=== PATIENT | female | born 1955 | race Caucasian/White ===

== ENCOUNTER 2023-07-11 07:32 | Day surgery (SDC) | payer MEDICARE, OTHER ==
[~2023-07-11] VITALS: Ht 157.5 cm; Wt 68.2 kg
[~2023-07-11 07:32] MED LIST: ALDACTONE25 MG PO; AMLODIPINE BESYL5 MG PO; ASPIRIN EC81 MG PO; CO Q-10100 MG PO; FLUVASTATIN SOD40 MG PO; GLUCOPHAGE500 MG PO; IBUPROFEN800 MG PO; LISINOPRIL2.5 MG PO; NORCO 5-325 TA1 EACH PO; NORVASC5 MG PO; SPIRONOLACTONE50 MG PO; VITAMIN C500 M1 PO; VITAMIN D-32000 UNIT PO; ZESTRIL2.5 MG PO
[2023-07-11 07:53] VITALS: BP 138/64
[2023-07-11] MEDS ORDERED: VITAMIN B12500 MCG PO (08:01)
[2023-07-11] MEDS ORDERED: VITAMIN D310 MC4 (08:01)
--- NOTE | 2023-07-11 09:24 | NUR ---
07/11/23 0924 Cinda Freedman 0907-ARRIVED IN PACU. AROUSES TO VERB STIM THEN IMMED BACK TO SLEEP. DENIES ANY C/O. 0917- MD AT BEDSIDE. PT TOO SLEEPY TO REVIEW PROCEDURE RESULTS WITH.
[2023-07-11 10:14] VITALS: BP 113/60
--- NOTE | 2023-07-11 11:00 | NUR ---
1005 PT CAME BACK TO DAY SURGERY VIA STRECHER. PT HAD MET ALL CRITERIA TO GO HOME, BUT PT WAS DROWSEY. 1015 PT VITALS TAKEN. PT REPORTS NO PAIN OR NAUSEA. 1040 DISCHARGE PAPERWORK GONE OVER, PRESRIPTION GIVEN TO SPOUSE. NO FURTHER QUESTIONS AT THIS TIME. 1050 PT LEFT DAY SURGERY VIA WHEELCHAIR TO FRONT OF THE HOSPITAL TO HUSBANDS CAR.
--- NOTE | 2023-07-12 10:00 | OR ---
[facility] [address] [place], [place] [address] Signed DATE OF OPERATION: 07/11/2023 SURGEON: Janki Rebolledo MD PREOPERATIVE DIAGNOSIS: Persistent diarrhea (known diverticulosis). POSTOPERATIVE DIAGNOSES: 1. Diverticulosis of sigmoid and left colon. 2. Internal hemorrhoids. 3. Normal-appearing ileum and colon. PROCEDURE: Total colonoscopy to cecum with intubation of ileum and biopsy of ileum, colon and rectum. ANESTHESIA: Intravenous sedation; fentanyl 100 mcg and Versed 8 mg. INDICATION: This 68-year-old white woman is a patient of Dr. Alexia Estrella. She is referred for consideration of colonoscopy on the basis of persistent diarrhea. Notably, she has no associated blood per rectum. She has undergone colonoscopy in the past, which has demonstrated diverticulosis. She does have a history of uterine and cervical cancer treated in 2016, which included chemotherapy as well as surgery. She had no radiation therapy she says. She has no family history of colon cancer. She is admitted at this time to undergo colonoscopy to better characterize the source of her diarrhea. She understands the risk of bleeding, infection, and perforation. FINDINGS: The prep was good. Complete colonoscopy was undertaken to the cecum. With great effort, the ileum was intubated and generally appeared normal. Biopsies were obtained there as well. Biopsies were taken of the cecum, the transverse colon, left colon and rectosigmoid. There is no overt colitis. Diverticulosis of the sigmoid was profound and was challenging to pass beyond with the scope, but it was accomplished. She had no evidence of malignancy or overt colitis though biopsies are pending. Internal hemorrhoids were identified as well. DESCRIPTION OF PROCEDURE: The patient was brought to the endoscopy suite and placed in the lateral decubitus Electronically Signed By: JANKI REBOLLEDO MD 07/12/23 1000 PATIENT NAME: BRUNO BLACK OPERATIVE REPORT DATE OF : 51 REPORT #: [id number] PHYSICIAN: JANKI REBOLLEDO MD PCP: JENIFER GAMBOA NP REPORT IS CONFIDENTIAL AND NOT TO BE RELEASED WITHOUT AUTHORIZATION [facility] [address], [place] [address] Signed position, given intravenous sedation to the point of slurred speech and nystagmus. Full cardiopulmonary monitoring was maintained. Digital rectal examination was normal. An Olympus video colonoscope was passed in the rectum and manipulated throughout the colon noting diverticula of the sigmoid and left colon. Passage to the area was rather challenging, but was accomplished with all due care. Once past the sigmoid, the scope was easily passed to the cecum. The ileocecal valve and appendiceal orifice were normal. There was no overt colitis. With various manipulations, the scope was advanced into the ileum and passed for several cm. Biopsies were obtained there. The mucosa did not appear inflamed, strictured or ulcerated. The scope was withdrawn and biopsies taken of the cecum. Careful withdrawal of the scope allowed for biopsy of the transverse colon and ultimately the rectosigmoid as well. Retroflexed view confirmed internal hemorrhoids. The scope was removed and the patient was taken to the recovery room in good condition. CONCLUDING DIAGNOSIS: Diverticulosis, which was significant. No evidence of stricture proper however. No evidence of overt colitis or ileitis. PLAN: Would recommend a fiber supplement such as Metamucil one scoop p.o. daily. We will review pathology reports particularly to assess for occult colitis. She will return to the ongoing care of Dr. Alexia Estrella. If she has persistent symptoms, I am happy to assist with symptom control recommendations. Would recommend repeat colonoscopy in 10 years, sooner if necessary. MD ASHA Cano/CHRISL /[id number] cc: Dr.Emily Estrella Electronically Signed By: JANKI REBOLLEDO MD 07/12/23 1000 PATIENT NAME: BRUNO BLACK MARVIN OPERATIVE REPORT DATE OF : 51 REPORT #: [id number] PHYSICIAN: JANKI REBOLLEDO MD PCP: JENIFER GAMBOA NP REPORT IS CONFIDENTIAL AND NOT TO BE RELEASED WITHOUT AUTHORIZATION [facility] [address] [place] [id number] Signed Copies: ~ Electronically Signed By: JANKI REBOLLEDO MD 07/12/23 1000 PATIENT NAME: BRUNO BLACK OPERATIVE REPORT DATE OF : 51 REPORT #: [id number] PHYSICIAN: JANKI REBOLLEDO MD PCP: JENIFER GAMBOA NP REPORT IS CONFIDENTIAL AND NOT TO BE RELEASED WITHOUT AUTHORIZATION
--- NOTE | 2023-07-13 10:31 | PATH ---
[facility] [address] [place], [place] [address] Signed SPECIMEN(S): A CECUM BIOPSY SPECIMEN(S): B ILEUM BIOPSY SPECIMEN(S): C TRANSVERSE BIOPSY SPECIMEN(S): D RECTOSIGMOID BIOPSY SPECIMEN SOURCE: A. CECUM BIOPSY B. ILEUM BIOPSY C. TRANSVERSE BIOPSY D. RECTOSIGMOID BIOPSY CLINICAL HISTORY: Chronic diarrhea; hyperlipidemia. Diverticulosis. FINAL PATHOLOGIC DIAGNOSIS: A. Cecum, biopsy: - Colonic mucosa with no significant pathologic changes B. Ileum, biopsy: - Small bowel mucosa with no significant pathologic changes C. Colon, transverse, biopsy: - Colonic mucosa with no significant pathologic changes D. Colon, rectosigmoid, biopsy: - Colonic mucosa with no significant pathologic changes BRP MICROSCOPIC EXAMINATION: Histologic sections of all submitted blocks are examined by light microscopy. These findings, together with the gross examination, support the pathologic diagnosis. GROSS DESCRIPTION: A. The specimen, labeled and designated "Schaad, cecum biopsy," is received in formalin and consists of four moore soft tissue fragments, ranging from 0.1-0.5 cm. Entirely submitted in (A1). B. The specimen, labeled and designated "Schaad, ileum biopsy," is received in formalin and consists of four moore soft tissue fragments, ranging from 0.3-0.4 cm. Entirely submitted in (B1). C. The specimen, labeled and designated "Schaad, transverse biopsy," is received in formalin and consists of two moore soft tissue fragments, ranging from 0.5-0.6 cm. Entirely submitted in (C1). D. The specimen, labeled and designated "Schaad, rectosigmoid biopsy," is PATIENT NAME: BRUNO BLACK PATHOLOGY DATE OF : 51 REPORT #: [id number] PHYSICIAN: ALEX BARON PCP: JENIFER GAMBOA NP REPORT IS CONFIDENTIAL AND NOT TO BE RELEASED WITHOUT AUTHORIZATION [facility] [address] [place], [place] [address] Signed received in formalin and consists of two moore soft tissue fragments, ranging from 0.2-0.3 cm. Entirely submitted in (D1). VB (under the direct supervision of a pathologist) The Gross Description was prepared using a voice recognition system. The report was reviewed for accuracy; however, sound-alike word errors, addition and/or deletions may occur. If there is any question about this report, please contact Client Services. ADDITIONAL NOTES: Immunohistochemical and/or in situ hybridization studies if performed in this case included appropriate positive controls that reacted as expected. This test was developed and its performance characteristics determined by [facility]. It has not been cleared or approved by the U.S. Food and Drug Administration. The FDA has determined that such clearance or approval is not necessary. This test is used for clinical purposes. It should not be regarded as investigational or for research. [facility] is certified under the Clinical Laboratory Improvement Amendments of 1988 (CLIA) as qualified to perform high complexity clinical laboratory testing. PERFORMING LABORATORY: Technical component was performed by [facility], [address] [place] [address] (CLIA# [id number]). Professional interpretation was performed by [facility], [address] [place] [address] (CLIA#: [id number]). Diagnostician: Abhay Max MD Pathologist Electronically Signed 07/13/2023 Copies: ~ PATIENT NAME: BRUNO BLACK PATHOLOGY DATE OF : 51 REPORT #: [id number] PHYSICIAN: ALEX BARON PCP: JENIFER GAMBOA NP REPORT IS CONFIDENTIAL AND NOT TO BE RELEASED WITHOUT AUTHORIZATION
== END 2023-07-11 10:50 | disposition home or self-care (01) ==
LOC: OPS 07:32 → DS 07:36 → OPS 08:30 → DS 08:30 → OPS 10:50
PROVIDERS: ATTEND Surgery
PROC: 0DBL8ZX Excision of Transverse Colon, Via Natural or Artificial Opening Endoscopic, Diagnostic (ICD-10-PCS; 2023-07-11)
PROC: 0DBN8ZX Excision of Sigmoid Colon, Via Natural or Artificial Opening Endoscopic, Diagnostic (ICD-10-PCS; 2023-07-11)
PROC: 0DBB8ZX Excision of Ileum, Via Natural or Artificial Opening Endoscopic, Diagnostic (ICD-10-PCS; 2023-07-11)
PROC: 0DBH8ZX Excision of Cecum, Via Natural or Artificial Opening Endoscopic, Diagnostic (ICD-10-PCS; principal; 2023-07-11 08:30)
DX: K52.9 Noninfective gastroenteritis and colitis, unspecified (principal); K64.8 Other hemorrhoids; K57.30 Diverticulosis of large intestine without perforation or abscess without bleeding; I10 Essential (primary) hypertension; E78.5 Hyperlipidemia, unspecified; Z90.711 Acquired absence of uterus with remaining cervical stump
CPT/HCPCS: 99153; G0500; J2250; J3010; J7121